=== PATIENT | male | born 1955 | race Caucasian/White ===

== ENCOUNTER 2022-08-15 10:15 | Inpatient (IN) | payer OTHER ==
[~2022-08-15] VITALS: Ht 177.8 cm; Wt 97.5 kg
[2022-08-15 10:15] VITALS: BP_SYST 123
--- NOTE | 2022-08-15 10:15 | NUR ---
BROUGHT ABCK TO BED #8 AND TRIAGED. REPORT GIVEN TO UZIEL
--- NOTE | 2022-08-15 10:18 | NUR ---
# 20 gauge angiocath placed to right ante cubital fossa. Use of asceptic technique. Opsite placed over site. Blood return noted. Blood for lab drawn from site. Flushed with 10 cc of normal saline. No evidence of infiltration noted. Patient tolerated well.
--- NOTE | 2022-08-15 10:20 | NUR ---
Reinforcing Steel Erector D[facility] to collect blood specimen.
[2022-08-15] MEDS ORDERED: NACL 0.9% 1,500 ML IV ONE (10:30)
--- NOTE | 2022-08-15 10:40 | NUR ---
technical product manager Scott at bedside.
[2022-08-15] MEDS ORDERED: cefTRIAXone 1 GM IVPB PREMIX 50 ML IV ONE (11:00)
[2022-08-15 11:01] LABS: BASOPHILS # (AUTO) 0.1 K/uL (0.0-0.2); BASOPHILS % (AUTO) 0.4 % (0.0-2.0); EOSINOPHILS # (AUTO) 0.2 K/uL (0.0-0.4); EOSINOPHILS % (AUTO) 0.9 % (0.0-4.0); HEMATOCRIT 42.6 % (36-54); HEMOGLOBIN 14.6 g/dL (14.0-18.0); LYMPHOCYTES # (AUTO) 1.2 K/uL (1.0-5.5); LYMPHOCYTES % (AUTO) 6.5 % (20.5-51.5); MEAN CORPUSCULAR HEMOGLOBIN 32 pg (27-31); MEAN CORPUSCULAR HGB CONC 34 % (32-36); MEAN CORPUSCULAR VOLUME 93 fL (79.0-98.0); MONOCYTES % (AUTO) 5.5 % (1.7-9.3); NEUTROPHILS # (AUTO) 16.3 K/uL (1.8-7.7); NEUTROPHILS % (AUTO) 86.7 % (40.0-70.0); PLATELET COUNT (AUTO) 255 K/uL (130-430); RED CELL DISTRIBUTION WIDTH 13.7 % (9.0-15.0); WHITE BLOOD COUNT (AUTO) 18.8 K/uL (4.8-10.8)
[2022-08-15 11:03] LABS: BILIRUBIN,URINE NEGATIVE (NEGATIVE); BLOOD, URINE 3+ (NEGATIVE); CLARITY/URINE SL CLOUDY (CLEAR); COLOR,URINE ORANGE (YELLOW); GLUCOSE,URINE NEGATIVE (NEGATIVE); KETONES,URINE NEGATIVE (NEGATIVE); LEUKOCYTE ESTERASE ,URINE 2+ (NEGATIVE); NITRITE, URINE POSITIVE (NEGATIVE); PROTEIN URINE 1+ (NEGATIVE); UROBILINOGEN,URINE 0.2 (0.2-1.0)
[2022-08-15 11:15] LABS: CALCIUM 8.8 mg/dL (8.4-11.0); CREATININE 4.93 mg/dL (0.55-1.30)
[2022-08-15 11:19] LABS: BACTERIA,URINE MODERATE /HPF (None Seen); MUCUS,URINE 1+ /LPF (None Seen); RBC,URINE 0-3 /HPF (0-3)
[2022-08-15 11:20] LABS: ALBUMIN 2.5 g/dL (3.4-4.8); TOTAL BILIRUBIN 1.4 mg/dL (0.0-1.0)
--- NOTE | 2022-08-15 12:33 | NUR ---
TAKEN TO RADIOLOGY VIA WHEELCHAIR FOR TESTING
--- NOTE | 2022-08-15 12:48 | NUR ---
Swabbed for COVID. Sent to the lab
--- NOTE | 2022-08-15 13:45 | NUR ---
Admit bed requested Patient will be admitted to care of . Admitted to Tele unit. Diagnosis Renal Failure with obstruction Inpatient (Yes or No) y Observation (Yes or No) n Orientation concerns or request close to nursing station (Yes or No) n Covid Status neg On vent or bipap n Isolation requirements n Needs a sitter n From Home (Yes or if No enter name of facility) home Requires Dialysis (Yes or No) no Med Rec Completed (Yes of No) pending
--- NOTE | 2022-08-15 14:57 | NUR ---
Henriquez 16 liberian inserted with sterile technique; Pt tolerated well. 800ml return with copper red urine. Pt denies pain. Bed in lowest position and rails up.
--- NOTE | 2022-08-15 15:45 | NUR ---
Pt complains of stewart discomfort, stewart bag emptied 1200 ml. Readjusted leg tubing. Pt states "feels less pressure".
--- NOTE | 2022-08-15 18:10 | NUR ---
Pt served regular diet per md orders.
--- NOTE | 2022-08-15 19:17 | NUR ---
Report given to Randell DE LA O Pt stable and made aware of bed availabilty to room 100 after shift change.
--- NOTE | 2022-08-15 19:57 | NUR ---
ADMISSION NOTE Received patient from ER via rgarrett. Patient admitted with diagnosis of renal failure with obstruction. Patient is awake, alert, oriented X 4. Patient oriented to hospital room, call light, toileting, pain management and safety-teach back done. Patient informed that I (Charity) will be his nurse and that their room number is 100-A. Skin intact. IV site of RAC #20 patent after flushed w/NS, no s/s any infiltration noted. Personal belongings checked and Belongings List documented. Call light within reach, side rails x2, bed alarmed. Henriquez cath w/ gravity drains compa urine output noted. Initial Plan of Care discussed-patient verbalized understanding. Pt is Oriented to room, call light, pain management and safety. Cont to monitor pt.
[2022-08-15 20:25] VITALS: BP_SYST 141; BP_SYST 144
--- NOTE | 2022-08-15 22:08 | NUR ---
CONSULTATION PAGED/CALLED Reason for Consultation: Person Who was Notified.. Consulting Physician: mary Farrowing Manager Specialty: Ordering Physician: cy spoke with dr benoit and asked what was the reason for consult he said no need to call the doctor they will see the pt on there list when they come tommorrow.
--- NOTE | 2022-08-15 22:11 | NUR ---
CONSULTATION PAGED/CALLED Reason for Consultation: Person Who was Notified: Consulting Physician: benjie santo seen pt Sales Representative [employer] Specialty: Ordering Physician: cy
[2022-08-15] MEDS: 0.45% NACL 1,000 ML IV SCH (22:33)
--- NOTE | 2022-08-15 22:33 | NUR ---
NOTES; CPAP MACHINE APPLIED BY JANEY GRACE -Pt is resting in bed comfortably. Pt denies any chest pain,pain,sob,or any acute distress. Henriquez cath w/ gravity drains compa urine output. Starting 1/2NS @ 75ml/hr. Inserted new IV site of left hand #22, attempted x1, good blood returns after flushed w/ NS,no s/s any infiltration noted. Call light w/in reach. cont to monitor pt.
[2022-08-15] MEDS ORDERED: TAMS-11 PO (22:37)
--- NOTE | 2022-08-16 00:03 | NUR ---
ROUNDS; -Pt is resting in bed comofortably. NO s/s any acute distress noted. 1/2NS @ 75ml/hr NS infusing well. Call light w/in reach. cont to monitor pt.
[2022-08-16 00:32] VITALS: BP_SYST 142
--- NOTE | 2022-08-16 04:28 | NUR ---
ROUNDS; -Pt is resting in bed conformably. Pt is using CPAP machine. NO s/s any acute distress noted. 1/2NS @ 75ml/hr NS infusing well. Call light w/in reach. cont to monitor pt.
--- NOTE | 2022-08-16 06:29 | NUR ---
CLOSING NOTES; -Pt is resting in bed conformably. NO s/s any acute distress noted. 1/2NS @ 75ml/hr NS infusing well. Call light w/in reach. Pt's condition stable. Will endorse to next nurse to cont care.
[2022-08-16 06:55] LABS: BASOPHILS # (AUTO) 0.1 K/uL (0.0-0.2); BASOPHILS % (AUTO) 0.5 % (0.0-2.0); EOSINOPHILS # (AUTO) 0.1 K/uL (0.0-0.4); EOSINOPHILS % (AUTO) 0.9 % (0.0-4.0); HEMATOCRIT 37.4 % (36-54); HEMOGLOBIN 13.2 g/dL (14.0-18.0); LYMPHOCYTES # (AUTO) 0.9 K/uL (1.0-5.5); LYMPHOCYTES % (AUTO) 5.3 % (20.5-51.5); MEAN CORPUSCULAR HEMOGLOBIN 32 pg (27-31); MEAN CORPUSCULAR HGB CONC 35 % (32-36); MEAN CORPUSCULAR VOLUME 92 fL (79.0-98.0); MONOCYTES % (AUTO) 5.8 % (1.7-9.3); NEUTROPHILS # (AUTO) 14.8 K/uL (1.8-7.7); NEUTROPHILS % (AUTO) 87.5 % (40.0-70.0); PLATELET COUNT (AUTO) 250 K/uL (130-430); RED BLOOD CELL COUNT(AUTO) 4.08 MIL/uL (4.2-6.2); RED CELL DISTRIBUTION WIDTH 13.6 % (9.0-15.0); WHITE BLOOD COUNT (AUTO) 16.9 K/uL (4.8-10.8)
[2022-08-16 07:30] VITALS: BP_SYST 132
--- NOTE | 2022-08-16 07:30 | NUR ---
OPENING NOTE Patient resting in bed. A/O x 4, Divehi speaking. Patient Breathing even and unlabored on RA saturations at 96%. No pain, no distress, no SOB noted. Patient has stewart patent and draining urine to gravity. Patient on regular diet. Patient has IV to RAC 20G on SL and Left Hand 22 g patent on NS at 75cc/hr. Bed is locked in lowest position. Call light within reach, all needs met, will continue to monitor.
[2022-08-16 07:33] LABS: ALBUMIN 2.1 g/dL (3.4-4.8); CALCIUM 8.2 mg/dL (8.4-11.0); CREATININE 3.59 mg/dL (0.55-1.30); TOTAL BILIRUBIN 0.9 mg/dL (0.0-1.0)
[2022-08-16] MEDS ORDERED: OLME20TA74 PO (07:55)
[2022-08-16] MEDS: 0.45% NACL 1,000 ML IV SCH ×2 (10:54→23:23)
--- NOTE | 2022-08-16 11:03 | NUR ---
CONSULTATION PAGED/CALLED Reason for Consultation: [] URNINARY RETENTION/BPH Person Who was Notified: [] LEFT A MESSAGE DR GLOVER'S PHONE Consulting Physician: [] DR Keegan GLOVER [employer] Specialty: [] UROLOGIST Ordering Physician: [] DR MILAN
--- NOTE | 2022-08-16 11:12 | NUR ---
MD GLOVER Spoke with MD Glover regarding patient's urinary retention and new stewart. Per MD patient to keep stewart in for 3 days and continue flomax daily and for patient to see him in clinic in one week. MD might be rounding tonight or tomorrow. Patient informed.
[2022-08-16] MEDS ORDERED: TAMSULOSIN HCL 0.4 MG CAP PO PRN (11:15)
[2022-08-16] MEDS ORDERED: TAMSULOSIN HCL 0.4 MG CAP PO ONE (11:30)
[2022-08-16 12:00] VITALS: BP_SYST 138
--- NOTE | 2022-08-16 12:00 | NUR ---
ROUNDS: Patient resting in bed with at bedside. Patient Breathing even and unlabored on RA. No pain, no distress, no SOB noted. Patient has Henriquez patent and draining urine to gravity. Bed is locked in lowest position. Call light within reach, all needs met, will continue to monitor.
--- NOTE | 2022-08-16 12:04 | NUR ---
DR GLOVER At bedside consulting.
--- NOTE | 2022-08-16 12:52 | NUR ---
MD Ade MONTOYA gave new orders to start patient on Rocephin IV for infection. Addendum: 08/16/22 at 1302 by Shabana Fernandez LVN Potassium Level is 3.3 but due to his BUN level MD Booker stated to just keep monitoring levels for now.
[2022-08-16] MEDS: cefTRIAXone 1 GM in D5W 50 ML IV SCH (13:59)
--- NOTE | 2022-08-16 15:49 | NUR ---
CPAP Placed a call to respiratory regarding patients personal CPAP machine. Per hospital protocol the RTs need to use the hospital CPAP machines. They stated they will bring a smaller unit to his room later tonight since patient expressed discomfort with the bigger CPAP machine from the hospital. Patient advised to take home his CPAP or keep it some where safe until discharge.
[2022-08-16 16:19] VITALS: BP_SYST 134
--- NOTE | 2022-08-16 18:47 | NUR ---
CLOSING NOTE Patient resting in bed resting. A/O x 4, Indian speaking. Patient Breathing even and unlabored on RA. No pain, no distress, no SOB noted. Patient has stewart patent and draining urine to gravity. Patient on regular diet. Patient has IV Left Hand 22 g patent on NS at 75cc/hr. Bed is locked in lowest position. Call light within reach, all needs met, will endorse to nightshift nurse.
[2022-08-16 19:15] VITALS: BP_SYST 144
--- NOTE | 2022-08-16 19:15 | NUR ---
PM ASSESSMENT; -Patient is awake, alert, oriented X 4. Patient oriented to hospital room, call light, toileting, pain management and safety-teach back done. Skin intact. IV site of left hand patent after flushed w/NS, no s/s any infiltration noted. Call light within reach, bed alarmed, side rails x2, bed alarmed. Henriquez cath w/ gravity drains compa urine output noted. Cont to monitor pt.
[2022-08-16 23:25] VITALS: BP_SYST 136
--- NOTE | 2022-08-16 23:49 | NUR ---
ROUNDS; CPAP MACHINE APPLIED BY CR -Pt brushed teeth before applied CPAP machine on. Pt denies any chest pain,pain,sob,or any acute distress. VSS. IV site of left hand patent, no s/s any infiltration noted. IVF infusing well. Call light within reach, bed alarmed, side rails x2, bed alarmed. Henriquez cath w/ gravity drains in place, tinged pink color emptied 2100ml. Cont to monitor pt.
--- NOTE | 2022-08-17 03:56 | NUR ---
ROUNDS; -Pt is asleep. No s/s any acute distress noted. Call light within reach, bed alarmed, side rails x2, bed alarmed. Henriquez cath w/ gravity drains in place. Cont to monitor pt.
[2022-08-17 08:00] VITALS: BP_SYST 145
--- NOTE | 2022-08-17 08:00 | NUR ---
Opening Notes Patient is Aox4. No ss of distress noted. Breathing is even and nonlabored, on room air. Vital signs obtained, as documented. Patient denies SOB. Denies pain. IVF running. Henriquez Catheter draining by gravity. Bed is locked, alarm on, and at lowest position. Call light within reach.
[2022-08-17] MEDS: TAMSULOSIN HCL 0.4 MG CAP PO SCH (09:25)
--- NOTE | 2022-08-17 09:43 | NUR ---
Notes Patient ambulated to restroom, minimal assist. No ss of distress noted. Breathing is even and nonlabored, on room air. Patient denies pain. Patient is back in bed. IVF running. IV patent. F/c draining by gravity. Bed is locked, alarm on, and at lowest position. Call light within reach.
[2022-08-17 11:27] VITALS: BP_SYST 136
--- NOTE | 2022-08-17 11:45 | NUR ---
MD Dr. Booker at bedside, speaking to patient and .
[2022-08-17] MEDS ORDERED: ACETAMINOPHEN 500 MG TABLET PO PRN (12:15)
[2022-08-17] MEDS ORDERED: POTASSIUM CHLORIDE 20 MEQ TAB.PRT.SR PO ONE (12:15)
[2022-08-17] MEDS: 0.45% NACL 1,000 ML IV SCH ×2 (12:42→23:30)
--- NOTE | 2022-08-17 12:50 | NUR ---
Notes patient requested pain medication for back pain, stated pain at 5/ 10. Pain medication administered.
[2022-08-17] MEDS: cefTRIAXone 1 GM in D5W 50 ML IV SCH (14:30)
[2022-08-17 15:24] VITALS: BP_SYST 137
--- NOTE | 2022-08-17 16:07 | NUR ---
Notes Patient is resting, in bed. is at bedside. No ss of distress noted. Patient denies pain. No SOB noted. IVF running, IV patent. F/C draining by gravity. Bed is locked, alarm on, and at lowest position. Call light within reach.
--- NOTE | 2022-08-17 17:24 | NUR ---
P.T. NOTES P.T. EVAL COMPLETED; REFER TO EVAL FOR DETAILS.
--- NOTE | 2022-08-17 18:30 | NUR ---
Closing Notes Patient is eating dinner. Patient denies pain. No ss of distress noted. No SOB noted. Breathing is even and nonlabored, on room air. IVF running. IV patent. F/C draining by gravity. Patient is stable. All needs met. Bed is locked, alarm on, and at lowest position. Call light within reach.
[2022-08-17 20:00] VITALS: BP_SYST 141
[2022-08-17] MEDS: DOCUSATE SODIUM 100 MG CAPSULE PO SCH (21:27)
--- NOTE | 2022-08-17 23:16 | NUR ---
Patient in bed. No acute distress noted. No complaint of pain or discomfort. Will continue to monitor.
[2022-08-18 04:00] VITALS: BP_SYST 152
[2022-08-18 06:32] LABS: BASOPHILS # (AUTO) 0.1 K/uL (0.0-0.2); BASOPHILS % (AUTO) 0.4 % (0.0-2.0); EOSINOPHILS # (AUTO) 0.1 K/uL (0.0-0.4); EOSINOPHILS % (AUTO) 0.5 % (0.0-4.0); HEMATOCRIT 37.7 % (36-54); HEMOGLOBIN 12.6 g/dL (14.0-18.0); LYMPHOCYTES % (AUTO) 6.5 % (20.5-51.5); MEAN CORPUSCULAR HEMOGLOBIN 31 pg (27-31); MEAN CORPUSCULAR HGB CONC 33 % (32-36); MEAN CORPUSCULAR VOLUME 93 fL (79.0-98.0); MONOCYTES # (AUTO) 0.9 K/uL (0.0-1.0); NEUTROPHILS % (AUTO) 86.6 % (40.0-70.0); PLATELET COUNT (AUTO) 241 K/uL (130-430); RED BLOOD CELL COUNT(AUTO) 4.06 MIL/uL (4.2-6.2); RED CELL DISTRIBUTION WIDTH 13.5 % (9.0-15.0)
[2022-08-18 07:07] LABS: CALCIUM 8.1 mg/dL (8.4-11.0); CREATININE 1.98 mg/dL (0.55-1.30); TOTAL BILIRUBIN 0.6 mg/dL (0.0-1.0)
--- NOTE | 2022-08-18 07:30 | NUR ---
OPENING NOTE Patient in bed resting, no sign of distress and patient denies pain. Patient is calm and cooperative. Henriquez catheter is patent and draining dark yellow urine to gravity. IV is patent and running prescribed fluids. Patient assisted to the restroom for a bowel movement, gait is steady. All needs met at this time and comfort measures provided. Safety checks made.
[2022-08-18 08:00] VITALS: BP_SYST 144
[2022-08-18] MEDS: TAMSULOSIN HCL 0.4 MG CAP PO SCH (08:40)
[2022-08-18] MEDS: DOCUSATE SODIUM 100 MG CAPSULE PO SCH (08:44)
[2022-08-18 10:17] VITALS: BP_SYST 144
[2022-08-18 11:25] VITALS: BP_SYST 118
[2022-08-18] MEDS: 0.45% NACL 1,000 ML IV SCH (11:29)
[2022-08-18] MEDS: cefTRIAXone 1 GM in D5W 50 ML IV SCH (12:57)
[2022-08-18 15:20] VITALS: BP_SYST 143
--- NOTE | 2022-08-18 15:30 | NUR ---
Dietitian Recommendations * Regular diet * Encourage good PO intake during meal times. - RD noted pt food preferences to increase PO intake. Submitted for Wendi Maldonado by Cindy Dodson, MPH, RD Please see Nutrition Assessment for further details Addendum: 08/18/22 at [address] Amended: Links added.
[2022-08-18] MEDS ORDERED: LEVO250T73 PO (16:08)
[2022-08-18 16:24] VITALS: BP_SYST 143
--- NOTE | 2022-08-18 18:00 | NUR ---
STEWART CATHETER DISCHARGE EDUCATION Patient is aware he will be discharged with his stewart catheter. Educated the patient and his on how to properly empty the stewart bag. Offered to demonstrate how to utilize a leg bag but patient declined and stated he would prefer to keep the larger bag. Patient returned demonstration on how to empty the stewart and verbalized understanding of hygiene instructions.
--- NOTE | 2022-08-18 18:30 | NUR ---
D/C Patient Patient given medication reconciliation form and D/C instructions. Exit Care provided. Patient verbalized understanding. MD discussed with patient the results and treatment provided. Ambulatory with steady gait for discharge to home via private auto with . Patient in stable condition, ID band removed. IV catheter removed, intact and dressing applied, no active bleeding. Patient educated on pain management. All belongings sent with patient.
[2022-08-19 08:06] LABS: % FREE PSA 6.8 % (.); FREE PSA 0.98 ng/mL
[2022-08-20 12:27] LABS: PROSTATE SPECIFIC AG TOTAL 14.4 ng/mL (0.0-4.0)
--- NOTE | 2022-09-01 09:49 | NUR ---
Domestic Cleaner [employer]CHOOL COMBINATION TEACHER made a Post Discharge Follow Up Phone call to recently discharged pt, Katherine who spoke kindly, was a good historian and listed all his follow up apts. as follows, PCP on 09/05, Urology on 09/[address] Booker on 09/07. Katherine stated he is scheduled for a Turp procedure. It was on 09/28, but was moved up to 09/21 and will be going to [facility] for a pre-opt apt. Katherine is currently taking tamiflu. On Wednesday, he was meeting with his PCP who sent him to the ER, was DxChiquita wit the flu. MIDDLE SCHOOL COMBINATION TEACHER thanked him for the health update and will remain available as needed. Addendum: 09/01/22 at 0957 by Stefani FUENTES Domestic Cleaner Katherine stated HH had come to his home on two occasions, but when catheter was removed on , HH no longer needed to come out to his home.
== END 2022-08-18 18:30 | disposition home health service (06) | DRG 871 ==
LOC: SED 10:15 → STU 13:57
PROVIDERS: ADMIT Internal Medicine; ATTEND Internal Medicine
PROC: 5A09457 Assistance with Respiratory Ventilation, 24-96 Consecutive Hours, Continuous Positive Airway Pressure (ICD-10-PCS; principal; 2022-08-15)
PROC: 0T9B70Z Drainage of Bladder with Drainage Device, Via Natural or Artificial Opening (ICD-10-PCS; 2022-08-15)
DX: A41.9 Sepsis, unspecified organism (principal); E43 Unspecified severe protein-calorie malnutrition; N17.0 Acute kidney failure with tubular necrosis; N13.6 Pyonephrosis; N40.0 Benign prostatic hyperplasia without lower urinary tract symptoms; G47.33 Obstructive sleep apnea (adult) (pediatric); I12.9 Hypertensive chronic kidney disease with stage 1 through stage 4 chronic kidney disease, or unspecified chronic kidney disease; N18.9 Chronic kidney disease, unspecified; E87.5 Hyperkalemia; Z20.822 Contact with and (suspected) exposure to COVID-19; Z90.49 Acquired absence of other specified parts of digestive tract
CPT/HCPCS: 36415; 36600; 71045; 76376; 76770; 80053; 81000; 82803-TC; 83605; 83735; 83880; 84153; 84484; 85025; 87040; 87086; 93005; 93306; 94660; 94760; 96365; 97163-GP; 99291; G0378; J0696; J7060

== ENCOUNTER 2022-08-28 13:59 | Emergency (ER) | payer OTHER ==
[~2022-08-28] VITALS: Ht 177.8 cm; Wt 96.2 kg
[~2022-08-28 13:59] MED LIST: LEVO250T73 PO; OLME20TA74 PO; TAMS-11 PO
[2022-08-28 14:07] VITALS: BP_SYST 139
--- NOTE | 2022-08-28 14:16 | NUR ---
Patient to ER bed 3 to gown for evaluation. Side rails up. Report given to PERRI DE LA O.
--- NOTE | 2022-08-28 14:17 | NUR ---
PT BIB FROM HOME AWAKE AND ALERT AOX4. PT C/O SOB AND TACHYCARDIA, W BACK PAIN X10 DAYS. PT 02 SAT WAS NOTED AT 96% RA. PT HAS HX OF SLEEP APNEA, BPH, HTN. PT DENIES N/V.
--- NOTE | 2022-08-28 14:20 | NUR ---
ER Dr. URIBE at bedside examining patient.
--- NOTE | 2022-08-28 14:31 | NUR ---
COVID AND INFLUENZA SWABS COLLECTED AND SENT TO LAB.
--- NOTE | 2022-08-28 14:49 | NUR ---
PT TAKEN TO CT IN WHEELCHAIR
[2022-08-28] MEDS ORDERED: MORPHINE 4 MG INJ. 4 MG/ML VIAL IM ONE (16:00)
[2022-08-28 16:03] LABS: BASOPHILS # (AUTO) 0.1 K/uL (0.0-0.2); BASOPHILS % (AUTO) 0.7 % (0.0-2.0); EOSINOPHILS # (AUTO) 0.1 K/uL (0.0-0.4); EOSINOPHILS % (AUTO) 0.8 % (0.0-4.0); HEMOGLOBIN 11.6 g/dL (14.0-18.0); LYMPHOCYTES # (AUTO) 1.3 K/uL (1.0-5.5); LYMPHOCYTES % (AUTO) 18.1 % (20.5-51.5); MEAN CORPUSCULAR HEMOGLOBIN 31 pg (27-31); MEAN CORPUSCULAR HGB CONC 34 % (32-36); MEAN CORPUSCULAR VOLUME 91 fL (79.0-98.0); MONOCYTES # (AUTO) 1.3 K/uL (0.0-1.0); MONOCYTES % (AUTO) 17.8 % (1.7-9.3); NEUTROPHILS # (AUTO) 4.6 K/uL (1.8-7.7); NEUTROPHILS % (AUTO) 62.6 % (40.0-70.0); PLATELET COUNT (AUTO) 193 K/uL (130-430); RED BLOOD CELL COUNT(AUTO) 3.74 MIL/uL (4.2-6.2); WHITE BLOOD COUNT (AUTO) 7.3 K/uL (4.8-10.8)
[2022-08-28 16:12] LABS: INR 1.2 (0.80-1.20); PROTHROMBIN TIME 11.8 SECS (9.5-12.5)
[2022-08-28 16:15] LABS: ANION GAP 11 (5-15); CALCIUM 8.9 mg/dL (8.4-11.0); CHLORIDE 100 mmol/L (98-107); CREATININE 1.63 mg/dL (0.55-1.30); GLUCOSE 120 mg/dL (70-99); UREA NITROGEN, BLOOD 13 mg/dL (8-21)
[2022-08-28 16:28] LABS: ALANINE AMINOTRANSFERASE 46 U/L (12-78); ALBUMIN 2.7 g/dL (3.4-4.8); ASPARTATE AMINOTRANSFERASE 23 U/L (10-37); GFR AFRICAN AMERICAN 55 mL/min (>90); LIPASE 126 U/L (73-393); TOTAL BILIRUBIN 0.8 mg/dL (0.0-1.0)
[2022-08-28] MEDS ORDERED: HYDR-3917 PO (17:38)
[2022-08-28] MEDS ORDERED: OSEL75CA PO (17:38)
[2022-08-28 17:55] VITALS: BP_SYST 139
--- NOTE | 2022-08-28 17:56 | NUR ---
Patient given written and verbal discharge instructions and verbalizes understanding. ER MD discussed with patient the results and treatment provided. Patient in stable condition. ID arm band removed. Rx of NORCO AND TAMIFLU given. Patient educated on pain management and to follow up with PMD. Pain Scale 2/10. Opportunity for questions provided and answered. Medication side effect fact sheet provided.
== END 2022-08-28 17:56 | disposition home or self-care (01) ==
LOC: SED 13:59
DX: J10.1 Influenza due to other identified influenza virus with other respiratory manifestations (principal); R10.9 Unspecified abdominal pain; J20.9 Acute bronchitis, unspecified; Z79.899 Other long term (current) drug therapy; Z20.822 Contact with and (suspected) exposure to COVID-19
CPT/HCPCS: 99285; 74176; 71045; 87426; 80053; 82550; 83880; 83690; 85025; 85610; 85730; 84484; 36415; 93005; 76376; 96372; 83605; 87804 ×2; J2270

== ENCOUNTER 2022-09-04 18:38 | Emergency (ER) | payer OTHER ==
[~2022-09-04] VITALS: Ht 177.8 cm; Wt 93.0 kg
[~2022-09-04 18:38] MED LIST changes: +HYDR-3917 PO; +OSEL75CA PO
[2022-09-04 19:16] VITALS: BP_SYST 140
--- NOTE | 2022-09-04 19:20 | NUR ---
PT FROM HOME WITH C/O OF HEMATURIA THAT STARTED THIS MORNING. PT SAW PCP TODAY AND HAD BLADDER IRRIGATED THEN PASSED SEVERAL CLOTS. WHEN PT RETURNED HOME, BLOOD WAS STILL PRESENT IN URINE. PT REPORTING 3/10 FLANK PAIN, TACHYCARDIC AT 113 BPM. MADE AWARE, AND REQUESTED FOR MSE.
--- NOTE | 2022-09-04 20:33 | NUR ---
Patient to ER bed HB1 to gown for evaluation. Side rails up.
--- NOTE | 2022-09-04 20:45 | NUR ---
DR. HOLLINGSWORTH AT BEDSIDE WITH PATIENT FOR MSE.
--- NOTE | 2022-09-04 20:50 | NUR ---
PT HR 96 BPM. MD MADE AWARE.
[2022-09-04] MEDS ORDERED: CIPR500T5 PO (21:01)
[2022-09-04 21:19] VITALS: BP_SYST 140
--- NOTE | 2022-09-04 21:19 | NUR ---
Patient given written and verbal discharge instructions and verbalizes understanding. ER DR. HOLLINGSWORTH discussed with patient the results and treatment provided. Patient in stable condition. ID arm band removed. Rx of cipro given. Patient educated on pain management and to follow up with PMD. Pain Scale 3. Opportunity for questions provided and answered. Medication side effect fact sheet provided.
== END 2022-09-04 21:19 | disposition home or self-care (01) ==
LOC: SED 18:38
DX: N39.0 Urinary tract infection, site not specified (principal); R31.9 Hematuria, unspecified; R30.0 Dysuria; R50.9 Fever, unspecified; I10 Essential (primary) hypertension; Z79.899 Other long term (current) drug therapy
CPT/HCPCS: 81002; 99283